=== PATIENT | male | born 1965 | race Caucasian/White ===

== ENCOUNTER 2023-09-07 08:30 | Outpatient (RCR) | payer BC, SELFPAY | END 2024-01-05 23:59 | disposition home or self-care (01) | PROVIDERS: Visit Provider Nurse Practitioner Family | DX: N50.89 Other specified disorders of the male genital organs (principal); M62.838 Other muscle spasm; Z87.898 Personal history of other specified conditions; Z51.89 Encounter for other specified aftercare | CPT/HCPCS: 97110; 97140; 97162 ==